=== PATIENT | female | born 1990 | race Caucasian/White ===

== ENCOUNTER 2016-09-24 23:41 | Emergency (ER) | payer OTHER ==
[~2016-09-24] VITALS: Ht 170.2 cm; Wt 95.3 kg
[2016-09-25] MEDS ORDERED: ROBAXIN 750 MG750 M1 PO (01:28)
[2016-09-25] MEDS ORDERED: NORCO 5-325 TA1 EACH PO (01:28)
[2016-09-25] MEDS ORDERED: IBUPROFEN 800800 MG PO (01:28)
[2016-09-25 02:17] VITALS: BP 123/63
== END 2016-09-25 02:18 | disposition home or self-care (01) ==
LOC: ER 23:41
DX: S16.1XXA Strain of muscle, fascia and tendon at neck level, initial encounter (principal); S00.83XA Contusion of other part of head, initial encounter; W22.8XXA Striking against or struck by other objects, initial encounter; Y93.89 Activity, other specified; Y92.89 Other specified places as the place of occurrence of the external cause; Y99.9 Unspecified external cause status; E28.2 Polycystic ovarian syndrome